=== PATIENT | female | born 1960 | race Caucasian/White ===

== ENCOUNTER 2017-08-10 15:59 | Outpatient (RCR) | payer OTHER ==
[2017-08-04 16:27] VITALS: BP 151/109
[2017-08-04 16:39] VITALS: BP 153/100
[2017-08-04 16:43] LABS: PLATELET COUNT, AUTOMATED 251 K/uL (150-450)
[~2017-08-10 15:59] MED LIST: CHOL100052 PO; CHOL100058 PO; CIPR-214 PO; ESTR42.5 VG; IBUP800T37 PO; MET60GMPT TOP; NITR-1 PO; OXYC-373 PO; TAMO20TA24 PO
[2017-08-10 16:05] VITALS: BP 131/79
--- NOTE | 2017-08-12 03:41 | [facility] ONCOLOGY NOTE ---
DATE OF VISIT: August 10, 2017 CHIEF COMPLAINT/REASON FOR VISIT The patient is a pleasant 56-year-old female with a history of stage IIIA grade 1 breast cancer of the left breast diagnosed in 2009, here for followup and survivorship. HISTORY OF PRESENT ILLNESS Melinda returns. Please see her oncologic history below for more details. Overall she feels well. We discontinued the tamoxifen after over 5 years of antiestrogen therapy in Aug, 2016. She feels better off of this. Her biggest complaint today is chronic bacterial vaginosis, for which she takes different therapies including metronidazole. This is providing some relief. No other new issues today. The patient has had bilateral mastectomies as well as bilateral salpingo-oophorectomy. ONCOLOGIC HISTORY Diagnosed with a left breast mass in 2011 showing a grade I infiltrating breast carcinoma. She has had numerous microcalcifications on mammograms and subsequently had mastectomy after she completed all of her breast cancer therapy. She initially had a lumpectomy with lymph node dissection showing 7 of 18 lymph nodes positive for cancer. Her final stage was stage IIIA, grade I. She had close margins and had reexcision followed by adjuvant chemotherapy with dose-dense Adriamycin and Cytoxan followed by dose-dense paclitaxel. She had a rash with paclitaxel and was switched to Abraxane. In January of 2011, she started endocrine therapy with tamoxifen and continued it through July 2016. Decision to discontinue the tamoxifen likely in July 2016 due to increased risks with vaginal dryness and other issues as well as diminishing benefit over time, particularly after bilateral mastectomies as well as bilateral salpingo-oophorectomy. Discontinued tamoxifen in August of 2016. PAST MEDICAL HISTORY 1. Breast cancer. 2. History of vitamin D deficiency. SOCIAL HISTORY The patient is and has one daughter. 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 Never smoker. No significant alcohol use. REVIEW OF SYSTEMS CONSTITUTIONAL: No fevers, chills or hot flashes. HEENT: No headache or vision changes.s CARDIOVASCULAR: No chest pain, dyspnea on exertion or edema. RESPIRATORY: No shortness of breath, wheeze or cough. GASTROINTESTINAL: No nausea, vomiting, diarrhea or constipation. GENITOURINARY: No dysuria or hematuria. MUSCULOSKELETAL: No weakness or joint pain. GYNECOLOGIC: Positive vaginal dryness taking estrogen creams. She does have some BV symptoms at this time using MetroGel. ENDOCRINE: No heat or cold intolerance. PSYCHIATRIC: No anxiety or depression. SKIN: No concerning rashes or lesions. The remainder of the 14-point review of systems otherwise negative. PHYSICAL EXAMINATION VITAL SIGNS: Blood pressure 131/79, pulse 58, respiratory rate 16, temperature 97.1 Fahrenheit. Oxygen saturation 92% on room air. Weight 62.5 kg. Pain 0 out of 10. Fatigue 0 out of 10. GENERAL: Stable condition, resting comfortably in the chair. HEENT: Normocephalic, atraumatic. LYMPHATIC: No appreciable cervical, supraclavicular, axillary adenopathy. No inguinal adenopathy as well. CARDIOVASCULAR: Regular rate and rhythm. Excellent pulse. Normal S1, S2. No extra sounds or murmurs. LUNGS: Clear to auscultation bilaterally. ABDOMEN: Soft, nontender, no organomegaly. SKIN: No concerning findings. Remainder of physical exam otherwise unremarkable. IMPRESSION AND PLAN The patient is a very pleasant 56-year-old female with the following: Stage IIIA grade 1 breast cancer of the left breast diagnosed in the winter of 2009, still in remission. Her likelihood of relapse from this cancer is very low. She has had bilateral mastectomies and bilateral salpingo-oophorectomy, which greatly reduces her risk of a second breast cancer. No need for further imaging , unless she has symptoms of concern. She is in survivorship, and we will see her annually. We discontinued tamoxifen after five years in August of 2016. I answered all of her questions today. BILLING Return visit level 3. Total time 30 minutes, counseling time 15. MTDD
== END 2017-08-14 16:13 | disposition home or self-care (01) ==
LOC: ONC 15:59
PROVIDERS: ATTEND Internal Medicine
DX: Z85.3 Personal history of malignant neoplasm of breast (principal); Z92.21 Personal history of antineoplastic chemotherapy
CPT/HCPCS: 36415; 82040; 82247; 82310; 82374; 82435; 82565; 82947; 84075; 84132; 84155; 84295; 84450; 84460; 84520; 85025; 86300; 99212

== ENCOUNTER → 2017-10-23 | Outpatient (CLI) | payer OTHER ==
[~2017-10-23] MED LIST changes: +HYDR-2966 PO
[2017-10-23 15:30] LABS: PLATELET COUNT, AUTOMATED 222 K/uL (150-450)
== END ==
LOC: LAB 15:14
PROVIDERS: ATTEND Nurse Practitioner Primary Care
DX: R11.0 Nausea (principal)
CPT/HCPCS: 36415; 82040; 82150; 82247; 82310; 82374; 82435; 82565; 82947; 83690; 84075; 84132; 84155; 84295; 84450; 84460; 84520; 85025

== ENCOUNTER → 2017-10-29 | Outpatient (CLI) | payer OTHER ==
--- NOTE | 2017-10-29 15:15 | RADIOLOGY IMAGING REPORT ---
FACILITY: [facility] PATIENT NAME: Melinda Beltran : 1960 MR: [id number] V: [id number] EXAM DATE: ORDERING PHYSICIAN: CONNER ABRAMS TECHNOLOGIST: Location: [facility] Patient: Melinda Beltran : 1960 Visit/Account:[id number] Date of Sevice: 10/29/2017 BONE SURVEY COMPLETE INDICATION: Right-sided chest pain, history of breast cancer COMPARISON: Chest radiograph July 23, 2007 FINDINGS: CHEST: Frontal view obtained. The cardiac silhouette is normal in size. Left axillary clips and lef t chest wall clips noted. The lungs are clear. No rib fracture or metastatic lesion identified. Cervical spine: Lateral and swimmer's lateral views obtained. Vertebral body heights are normal. No metastatic disease identified. Normal prevertebral soft tissues. Moderate C5-6 disc space degenera tion. Skull: Lateral view obtained. Normal without metastatic lesion. Thoracic spine: Frontal and lateral views obtained. Mild convexity right scoliosis. Vertebral body heights are normal. Normal disc space heights. No metastatic disease identified. Humeri: 8mm ovoid lucency projects over the proximal to mid right humeral diaphysis. 2 mm round luce ncy projects over the proximal left humerus. Pelvis: Normal hip and sacroiliac joints. Ill-defined lucency throughout the left acetabulum measure s up to 5.37 m craniocaudad. Equivocal vague lucency within the left ischial tuberosity measuring 2. 9 cm. Lumbar spine: Frontal and lateral views obtained. Vertebral body heights are normal. No metastatic disease identified. Mild to moderate L4-5 disc space degeneration. Approximate 3 to 4 mm retrolisth esis of L5 on S1. Femurs: Normal. IMPRESSION: 1. Ill-defined lucent lesion within the left acetabulum measuring up to 5.3 cm craniocaudad is nilda rning for a malignant lesion until proven otherwise. CT or MR could be utilized for further characterization of this finding as needed. 2. 8mm right and 2 mm left lucencies project over the humeral diaphyses, findings which may represen t metastatic lesions. The 2 mm left humeral diaphysis lucency may represent a chronic benign finding . The 8mm right humerus diaphysis region finding could conceivably represent a superficial or soft t issue artifact mimicking a bony lesion. Repeat right humerus x-ray could be utilized as needed to evaluate the reproducibility of this findin g. Alternatively a bone scan could be utilized to evaluate for hypermetabolic activity in this area and to exclude hypermetabolic activity within the remainder of the skeleton. Report Dictated By: Lamont Fournier MD at 10/29/2017 3:00 PM Report E-Signed By: Lamont Fournier MD at 10/29/2017 3:11 PM WSN:[email or web address]
== END ==
LOC: RAD 10-26 13:48
PROVIDERS: ATTEND Nurse Practitioner Primary Care
DX: R91.8 Other nonspecific abnormal finding of lung field (principal)
CPT/HCPCS: 77075

== ENCOUNTER → 2017-11-05 | Outpatient (CLI) | payer OTHER ==
[~2017-11-05] MED LIST changes: +IOPAMIDOL 76% 100 ML INFUS BTL 100 ML ONE; +IOPAMIDOL 76% 50 ML INFUS BTL 100 ML ONE
--- NOTE | 2017-11-05 18:25 | RADIOLOGY IMAGING REPORT ---
FACILITY: [facility] PATIENT NAME: Melinda Beltran : 1960 MR: [id number] V: [id number] EXAM DATE: ORDERING PHYSICIAN: CONNER ABRAMS TECHNOLOGIST: Location: [facility] [place] Patient: Melinda Beltran : 1960 Visit/Account:[id number] Date of Sevice: 11/05/2017 CHEST/AB/PELV W/CONTRAST HISTORY: HX of breast cancer, in remission. R rib pain and recen TECHNIQUE: CT chest, abdomen and pelvis with intravenous contrast. One of the following dose optimization techniques was utilized in the performance of this exam: Autom ated exposure control; adjustment of the mA and/or kV according to the patient's size; or use of an i terative reconstruction technique. Specific details can be referenced in the facility's radiology C T exam operational policy. CONTRAST: 75 mL Isovue-370 IV COMPARISON: CT 06/28/2012, bone survey 10/29/2017 FINDINGS: CHEST: Heart/vessels: Negative. Mediastinum: Negative. Lymph nodes: No adenopathy. Lungs/pleura: Asymmetric, left greater than right, but likely benign-appearing biapical pleural pare nchymal pulmonary scarring. Several calcified pulmonary micronodules consistent with benign granuloma s. Bones/soft tissues: Numerous mixed lytic and/or sclerotic osseous lesions throughout the ribs and vi sualized cervicothoracic spine. In regards to patient's reported right rib pain, there is a likely chaidez bacute pathologic fracture of the lateral right 5th rib and a more acute-appearing and presumably als o pathologic fracture of the lateral left 6th rib. Sequela of bilateral mastectomies and left axillar y patricia dissection. ABDOMEN/PELVIS: Hepatobiliary: Low attenuating attenuating but peripheral nodular enhancing 1.4 x 1.7 and 2.0 x 2.1 cm lesions within hepatic segments 5 and 7 respectively. Although better visualized than on remote pr ior exam, these are grossly unchanged and most consistent with benign cavernous hemangiomas. Spleen: Negative. Adrenals: Negative. Pancreas: Negative. Kidneys/: Uterus surgically absent. Ovaries not visualized, either also surgically absent or atrop hic. GI: Negative. Vessels/spaces/nodes: No adenopathy. No free fluid. Bones/soft tissues: Very small fat-containing umbilical hernia. Numerous mixed lytic and/or scleroti c osseous lesions throughout the lumbar spine and pelvis IMPRESSION: 1. Numerous new mixed lytic and/or sclerotic osseous lesions throughout the visualized axial skeleton consistent with metastatic disease. 2. Likely subacute and acute pathologic fractures of the lateral right 5th and left 6th ribs respecti vely. 3. Other chronic and/or benign-appearing changes detailed above including stable right hepatic cavern ous hemangiomas. Report Dictated By: Darrin Mills MD at 11/05/2017 5:57 PM Report E-Signed By: Darrin Mills MD at 11/05/2017 6:21 PM WSN:[id number]
== END ==
LOC: CT 02:07
PROVIDERS: ATTEND Nurse Practitioner Primary Care
DX: C79.51 Secondary malignant neoplasm of bone (principal); D18.03 Hemangioma of intra-abdominal structures
CPT/HCPCS: 71260; 74177; Q9967

== ENCOUNTER → 2017-11-11 | Outpatient (CLI) | payer OTHER ==
[~2017-11-11] MED LIST changes: -IOPAMIDOL 76% 100 ML INFUS BTL 100 ML ONE; -IOPAMIDOL 76% 50 ML INFUS BTL 100 ML ONE
--- NOTE | 2017-11-11 14:17 | RADIOLOGY IMAGING REPORT ---
FACILITY: [facility] [place] PATIENT NAME: Melinda Beltran : 1960 MR: [id number] V: [id number] EXAM DATE: ORDERING PHYSICIAN: JANES MURRY TECHNOLOGIST: [place] [facility] [place] : 1960 Visit/Account:[id number] Date of Sevice: 11/11/2017 WHOLE BODY BONE SCAN HISTORY: Breast CA TECHNIQUE: 27 mCi technetium 99m HDP was injected intravenously. Delayed anterior and posterior body gamma camera images were obtained. Additional gamma camera images: COMPARISON STUDIES: None FINDINGS: Study demonstrates multiple foci of radiotracer uptake within ribs bilaterally with at least 15-20 fo ci of noted within both the anterior and posterior aspects of the ribs bilaterally. There appears to be a generalized increased uptake in the posterior aspect of the thoracic spine with several areas of more discrete uptake most notably at the T2 level. Increased uptake throughout the anterior aspect of the lower cervical upper thoracic spine. Scattered areas of faint increased upta ke on the AP film within the thoracic spine. There is also focus of uptake in the posterior aspect o f the mid cervical region. There is a broad area of uniform uptake throughout the lateral aspect of the left iliac bone. Increa sed uptake is also noted along the posterior medial aspect PA film. Symmetric uptake seen along the SI joints bilaterally right greater than left IMPRESSION: 1. Multiple areas of bony metastatic disease involving primarily the ribs, pelvis cervical thoracic spine. Report Dictated By: Ike Nicolas MD at 11/11/2017 1:48 PM Report E-Signed By: Ike Nicolas MD at 11/11/2017 2:12 PM WSN:[email or web address]
== END ==
LOC: RAD 08:01
PROVIDERS: ATTEND Internal Medicine
DX: C79.51 Secondary malignant neoplasm of bone (principal)
CPT/HCPCS: 78306; A9503

== ENCOUNTER → 2017-12-01 | Outpatient (CLI) | payer OTHER ==
[~2017-12-01] MED LIST changes: +GADOBENATE 529MG/1ML 15ML VIAL IVP ONE
--- NOTE | 2017-12-01 10:26 | RADIOLOGY IMAGING REPORT ---
FACILITY: [facility] PATIENT NAME: Melinda Beltran : 1960 MR: [id number] V: [id number] EXAM DATE: ORDERING PHYSICIAN: LINDA GONZALEZ TECHNOLOGIST: Location: [facility] - [place] Patient: Melinda Beltran : 1960 Visit/Account:[id number] Date of Sevice: 12/01/2017 Examination: MR brain without and with contrast History: Metastatic breast cancer Comparison: None Technique: Multiplane MR imaging was performed through the brain without and with contrast. 12 cc IV multihance was administered. Findings: Diffusion: None Ventricles: Normal Midline shift: None Extraxial fluid: None Midline craniocervical structures: Normal Parenchyma: A few scattered punctate white matter high signal foci, within normal limits for age. Enhancement: No pathologic enhancement Vascular flow voids: Normal Orbits and paranasal sinuses: Normal Impression: Normal for age brain MR without and with contrast. No metastatic disease identified. Report Dictated By: Lamont Fournier MD at 12/01/2017 10:09 AM Report E-Signed By: Lamont Fouriner MD at 12/01/2017 10:21 AM WSN:[id number]
== END ==
LOC: MRI 08:35
PROVIDERS: ATTEND Internal Medicine Medical Oncology
DX: R42 Dizziness and giddiness (principal); C79.81 Secondary malignant neoplasm of breast
CPT/HCPCS: 70553; A9577

== ENCOUNTER 2018-01-06 09:45 | Outpatient (RCR) | payer OTHER ==
--- NOTE | 2017-11-19 09:25 | PT INITIAL EVALUATION ---
MEDICAL DIAGNOSIS: Breast Cancer TREATMENT DIAGNOSIS: Breast Cancer, Axillary Cording DATE OF ONSET: 11/19/17 SUBJECTIVE: Melinda is a 57 year old female presenting to physical therapy following recent discovery of recurrence of metastatic breast cancer with mets to the ribs, thoracic spine and pelvis. Pt reports that secondary to metastasis that she recently had a R rib fracture that occurred 4-5 weeks prior , and has a history of a L rib fracture. Pt has a history of L breast cancer initially diagnosed in 2010 with lumpectomy and axillary lymph node removal. Pt had a bilateral mastectomy in 2012 as well following treatment of both radiation and chemotherapy. Pt is very active and with recent rib fractures is afraid of further injury with activity level. Pt also notices that with decreased activity she has had increased stiffness in her L axilla with significant scar tissue. Pt treatment for metastasis is currently being decided following recent imaging. Pt recreationally hikes, walks and lifts free weights. Pt previously ran but has stopped running since dx of metastasis secondary to fear of fractures and rib pain. Pain is highest at 2/10 lately with transfers and twists, but the pain comes and goes. REHAB PROBLEM LIST: Increased Pain Decreased ROM Decreased Strength Decreased Endurance Decreased Function Decreased ADL's Decreased Mobility PREVIOUS MEDICAL HISTORY: See EMR OBJECTIVE: Pt has B mastectomy without reconstruction. Incisions are well healed. Pt has increased scapular protraction on the L compared to R with overhead reaching. Posture: Forward rounded shoulders B. ROM: UE AROM (L, R): flexion: 115,132, abd: 135, 136, ER: 74, 65, IR: T4, T3 level Strength: Shoulder MMT: all 5/5 excluding R IR at 4+/5 Palpation: Pt has moderate axillary cording along the anterior and posterior L axillary sumner. Mobility: ECOG Performance Status: grade 0 ASSESSMENT: Melinda presents with signs and symptoms consistent with axillary cording secondary to diagnosis and intervention for L breast cancer. Physical therapy is indicated for this patient to address the above listed deficits in functional mobility for improved performance of ADL's and recreational activities with ongoing oncological intervention. Short Term Goals In 1 MO pt will increase L UE ROM to equal to that of the R for improved function with ADL's. In 1 MO pt will maintain ECOG performance status of 1 or less with ongoing oncological intervention to optimize outcomes and maintain function. In 2 MO pt will maintain and improve strength of the b UE to 5/5 in all motions for improved function with ADL's. Patient's Goals Improve mobility and return to recreational activities. PLAN: Patient to be seen for Manual Therapy/STM/MET Strengthening/condition Ice/Heat Range of Motion Spinal Stabilization Stretching Iontophoresis Neuromuscular Re-ed Closed Chain Program Posture/Body mechanics Gait Trg/Balance Trg Home Exercise Program Mech./Manual Traction Therapeutic Activities Pelvic Floor 2x/Week for 4 Months If you have any questions, comments, or concerns about this report or plan, please contact me at . Thank you, Carlie Foster, PT, DPT, CLT MTDD
[~2018-01-06 09:45] MED LIST changes: +CALC500T6 PO; -GADOBENATE 529MG/1ML 15ML VIAL IVP ONE
== END 2018-02-16 ==
LOC: PT 09:45
PROVIDERS: ATTEND Internal Medicine
DX: C50.912 Malignant neoplasm of unspecified site of left female breast (principal); C79.51 Secondary malignant neoplasm of bone; Z90.13 Acquired absence of bilateral breasts and nipples; Z92.21 Personal history of antineoplastic chemotherapy; Z92.3 Personal history of irradiation
CPT/HCPCS: 97161

== ENCOUNTER 2018-01-27 08:29 | Outpatient (RCR) | payer OTHER ==
[2017-11-10 13:32] LABS: PLATELET COUNT, AUTOMATED 298 K/uL (150-450)
[2017-11-10 13:41] VITALS: BP 113/73
[2017-11-16 08:36] VITALS: BP 132/77
--- NOTE | 2017-11-17 20:31 | ONCOLOGY FOLLOW UP NOTE ---
EVENT DATE: November 16, 2017 CHIEF COMPLAINT/REASON FOR VISIT Mrs. Beltran is a pleasant, 57-year-old female with a history of grade 1 breast cancer of the left breast, diagnosed in 2009, originally stage IIIA, but now stage IV, here for followup. HISTORY OF PRESENT ILLNESS Melinda returns. Please see her oncology history below for more details. I had an extensive conversation with her on the phone approximately a week and a half ago after discovery of metastatic disease to the bone in followup for mild rib pain. Her rib pain has actually improved, but we have a bone scan and studies which, unfortunately, do show scattered, wide-spread disease. Of note, she had grade I disease and stopped tamoxifen about 14 months ago. No symptoms until late this spring/early summer approximately a year after stopping the therapy. ONCOLOGIC HISTORY Diagnosed with a left breast mass in 2011 showing a grade 1 infiltrating breast carcinoma. She has had numerous microcalcifications on mammograms and subsequently had mastectomy after she completed all of her breast cancer therapy. She initially had a lumpectomy with lymph node dissection showing 7 of 18 lymph nodes positive for cancer. Her final stage was stage IIIA, grade 1. She had close margins and had reexcision, followed by adjuvant chemotherapy with dose-dense Adriamycin and Cytoxan, followed by dose-dense PACLITAXEL. She had a rash with PACLITAXEL and was switched to Abraxane. In January 2011, she started endocrine therapy with tamoxifen and continued it through July 2016. Decision to discontinue the tamoxifen likely in July 2016 due to increased risks with vaginal dryness and other issues as well as diminishing benefit over time, particularly after bilateral mastectomies as well as bilateral salpingo- oophorectomy. Discontinued tamoxifen in August of 2016. PAST MEDICAL HISTORY 1. Breast cancer. 2. History of vitamin D deficiency. SOCIAL HISTORY The patient is and has one daughter. 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 No significant alcohol use. REVIEW OF SYSTEMS CONSTITUTIONAL: No fevers, chills, hot flashes. HEENT: No headache or vision changes. CARDIOVASCULAR: No chest pain, dyspnea on exertion, or edema. RESPIRATORY: No shortness of breath, wheeze, cough. GASTROINTESTINAL: No nausea or vomiting, although her stomach occasionally feels a bit upset which may be related to stress or to the cancer. GENITOURINARY: No dysuria or hematuria. MUSCULOSKELETAL: Positive rib pain, rated 1/10, improved since a month ago. GYNECOLOGIC: She does have a history of vaginal dryness and had used estrogen creams. Recommend stopping this. ENDOCRINE: No heat or cold intolerance. PSYCHIATRIC: No anxiety or depression. SKIN: No concerning rashes or lesions. The remainder of the 14-point review of systems otherwise negative. PHYSICAL EXAMINATION VITAL SIGNS: Blood pressure 132/77, pulse 62, respiratory rate 16, temperature 97.2 Fahrenheit. Oxygen saturation 97% on room air. Weight 59.8 kg. Pain 1/ 10. Fatigue zero/10. GENERAL: Stable condition, resting comfortably in the chair. HEENT: Normocephalic, atraumatic. CARDIOVASCULAR: Regular rate and rhythm. Normal S1, S2. LUNGS: Clear to auscultation bilaterally. ABDOMEN: Soft, nontender. No masses or organomegaly. SKIN: No concerning findings. Remainder of physical exam unremarkable. IMPRESSION AND PLAN Mrs. Beltran is a very pleasant, 57-year-old female with the followin. Stage IV, grade 1, estrogen receptor-positive, HER2 normal breast cancer of the left breast, diagnosed in the winter of 2009. She has had a history of bilateral salpingo-oophorectomy, but I would recommend consideration of an aromatase inhibitor as she was treated with tamoxifen for approximately six to seven years. We discontinued it in August 2016 due to side effects and patient preference. There are clinical trials to consider as well. She is not in a visceral crisis, and I do not recommend chemotherapy at this time. We discussed seeing our breast cancer specialists in [facility], and she would like to do this and then move forward with treatment in a team approach. I answered all of her many questions today as well as the questions of her today. 2. Pain due to cancer. 3. Concern for fracture. Plan to add Xgeva after we determine her appropriate treatment plan and will order physical therapy as well today. BILLING Return visit level 5. Total time 60 minutes, counseling time 45. MTDD
[2017-12-22 12:05] VITALS: BP 128/71
[2017-12-22 13:52] VITALS: BP 128/66
[2018-01-01 08:32] VITALS: BP 121/74
--- NOTE | 2018-01-05 15:29 | Pharmacy Note ---
Pharmacy Note Note: Clinical Pharmacist Note: Chemotherapy Education Visit Date: 01/05/18 Chemotherapy Regimen: Carboplatin AUC=6 Q21D x 6 cycles The regimen includes carboplatin AUC=6 Q21D x 6 cycles. The schedule of treatment administration was explained in detail to the patient in regards to lab visits, timing and sequence of premedications and chemotherapy, followed by any supportive medications to be given. Discussed the purpose of the port and why we administer chemotherapy through a port. Port placed prior to chemo ed appointment. Patient's diagnosis, treatment plan, and intent of treatment along with goals are outlined on the signed consent form, that was reviewed and signed at the end of this appointment. The goal is control of disease. The potential for drug/drug interaction and drug/food interactions were explained to the patient. A medication reconciliation was reviewed by the pharmacist today. We reviewed and discussed toxicities of supportive care medications and how to appropriately use supportive medications including the schedule of anti-emetics. These medications include the following: Take home medications: dexamethasone, ondansetron, prochlorperazine, lorazepam Pre-medications: fosaprepitant, palonosetron, dexamethasone Supportive Medications: none at this time, discussed potential need for pegfilgrastim We have also discussed the potential for long and short term side effects of chemotherapy including, but not limited to the side effects outlined below: -Low WBCs or neutropenia: Patient may experience bone marrow toxicity that would increase their risk for infection. Patient is aware to look for signs and symptoms of infection (e.g. fever of higher than 100.4F, chills, sore throat, etc.) and knows what number to call and when to contact the clinic. Advised patient of things they can do such as wash hands with soap and water often, avoid people who are sick, and avoid crowds during times of low blood counts (typically 7-10 days post chemotherapy). - Low RBCs or anemia: Anemia is when you don't have enough red blood cells to carry oxygen through your body, which causes fatigue, weakness, lightheadedness, pale skin, SOB, or headaches. Discussed the importance of getting enough restful sleep at night and eating a diet rich in iron. Lab values will be closely monitored to check your RBCs. Advised patient to contact the clinic if they have a fast heart rate, dizziness, or lightheadedness. -Low platelet counts or thrombocytopenia: Patient may experience low platelets which can lead to increased risk of bleeding, easy bruising, black or bloody stools, or small red or purple spots on the skin. Platelets help blood to clot and if your platelets are low enough, bleeding may not stop after a few minutes. Excessive bleeding or bruising, red spots on your skin or new onset headaches require a phone call to the clinic. - Fatigue (feeling tired): Some patients may experience fatigue, or feel tired, weak, low energy, drained or exhausted. You will experience fatigue after chemotherapy, but the amounts for each person and chemotherapy will differ. Advised patient to stay active as much as they can with light exercise, take short naps if needed, get a restful night of sleep, and eat a well-balanced diet. Call the clinic if you are unable to get out of bed or do typical daily activities, have shortness of breath, or have trouble walking small distances. -Nausea or vomiting: Most patients may experience some level of nausea (feeling queasy or sick to your stomach) or vomiting. Advised patient to take their a nti-nausea medications as prescribed, drink plenty of fluids, eat several small meals throughout the day, eat bland easy to digest foods, and speak to our pencil sorter if they have questions. Call the clinic if the nausea or vomiting is not eased by your medications and lasts 12 hours or longer, or if unable to eat or drink, or keep medicines down. - Appetite changes (eating less or more): You may experience a decrease or increase in your appetite that might last a day, weeks or months. Advised patient to set a schedule for eating and drink high protein drinks to maintain calories. Ask your doctor or nurse for a pencil sorter consult to help manage your appetite changes or if you have concerns about your appetite changes. Contact the clinic if you notice a change in weight and if you are unable to take in more than a few bites of food or sips of liquid at mealtimes. Favorite foods may also taste different or may not be pleasing. -Mouth sores and oral care (mucositis or stomatitis): Patient was informed that they may experience taste changes, dry mouth, and potential mouth sores due to the chemotherapy. The best way to prevent and treat mouth sores is to do routine mouth care each day. If mouth sores occur, use mouth rinses with baking soada, alst and warm water after meals and before bed (dissolve 2 TBSP of baking soda and 1/2 tsp of salt in 8 oz of warm water--swish and spit). Avoid mouthwashes with alcohol and spicy food if mouth sores exist. If dry mouth occurs, sucking on ice chips or sugar free hard candy can help. -Neuropathy (numbness-pins and needles-tingling): Patient may experience acute and chronic neuropathy that can potentially be irreversible due to the chemotherapy. The patient is advised to report symptoms to the clinic if they experience burning, tingling, and numbness in the hands, feet, face or mouth. -Sexual and Reproductive Health: There is an increased risk of chemotherapy exposure to your partner when you are on chemo. When sexually active, wear a protective barrier while on chemotherapy. -Hepatotoxicity: There is a risk of toxicity to your liver. Your lab work will be watched closely to determine if this is occurring and any required dose adjustments will be made at that time. -Extravasation: The patient is receiving a vesicant as part of their chemotherapy regimen. While the risk of extravasation with a port is very low, there is still a risk. Discussed what a vesicant is and that extravasation of a vesicant can lead to severe local tissue injury and necrosis requiring surgical intervention and possible skin grafting. Patient was educated to report any pain or burning at the port site GIANNA. -Other Toxicities: Electrolyte changes, nephrotoxicity, vision changes and ototoxicity: Patient will be monitored closely for toxicities listed. Lab work will be reviewed weekly and the patient will be notified with these changes and if there are changes, may need additional follow up and testing. Patient was given the Standard Chemotherapy Education Binder with appropriate phone numbers and we reviewed symptoms that would prompt a call to the clinic. Upcoming appointments were discussed and patient knows to follow up at the front office attendant to get print outs of their schedule and the processes to change/cancel an appointment. Consent was reviewed with the patient and signed in my presence. The treating physician will review and sign the consent. Allergies were reviewed: Sulfa, meperidine, paclitaxel, sulfamethoxazole, trimethoprim At the end of this discussion, the patient verbalized understanding of the provided education and information and all of their questions were answered to their satisfaction. Patient knows how to reach me if further questions or concerns come up. Time spent with the patient: 75 minutes, with all 75 minutes being spent counseling on the detailed information above. Jaymie Corbett, PharmD, BCOP JAYMIE CORBETT Jan 05, 2018 15:29
[2018-01-06 08:35] VITALS: BP 121/78
[2018-01-06] MEDS: LIDOCAINE/SOD BICARB 8.4% SYR ID PRN (08:55)
[2018-01-06] MEDS: HEPARIN FLSH (PORT) 500 UN/5ML IVP PRN (08:55)
[2018-01-06] MEDS: NS(*) 0.9% 500 ML BAG 500 ML IV PRN (08:55)
[2018-01-06] MEDS: PALONOSETRON 0.25 MG/5 ML VIAL IVP PRN (09:43)
[2018-01-06] MEDS: DEXAMETHASONE SOD PHOS 10MG/ML IVP PRN (09:44)
[2018-01-06] MEDS: FOSAPREPITANT DIM 150 MG/5 ML 150 MG in NS(*) 0.9% 250 ML BAG 245 ML IVPB PRN (10:17)
[2018-01-06 12:25] VITALS: BP 122/67
[2018-01-13 08:32] VITALS: BP 115/74
[2018-01-13 08:45] LABS: PLATELET COUNT, AUTOMATED 265 K/uL (150-450)
[~2018-01-27] VITALS: Ht 175.3 cm; Wt 58.0 kg
[~2018-01-27 08:29] MED LIST changes: +ALTEPLASE RECOMB 2 MG VIAL IVP PRN; +CARBOPLATIN IVPB ONE; +DEXTROSE 5%(*) 100 ML BAG 100 ML IVPB PRN; +LIDOCAINE/SOD BICARB 8.4% SYR ID PRN; +NS 0.9% IVPB ONE; +NS(*) 0.9% 100 ML BAG 100 ML IVPB PRN; +WATER FOR INJ,STERILE 20 ML IVP PRN; +ZOLEDRONIC ACID 4 MG/5 ML VIAL 4 MG in NS(*) 0.9% 100 ML BAG 100 ML IVPB ONE
[2018-01-27] MEDS: HEPARIN FLSH (PORT) 500 UN/5ML IVP PRN (08:55)
[2018-01-27] MEDS: LIDOCAINE/SOD BICARB 8.4% SYR ID PRN (08:55)
[2018-01-27] MEDS: NS(*) 0.9% 500 ML BAG 500 ML IV PRN (08:55)
[2018-01-27 08:58] VITALS: BP 130/88
[2018-01-27] MEDS: DEXAMETHASONE SOD PHOS 10MG/ML IVP PRN (09:07)
[2018-01-27] MEDS: PALONOSETRON 0.25 MG/5 ML VIAL IVP PRN (09:08)
[2018-01-27] MEDS: FOSAPREPITANT DIM 150 MG/5 ML 150 MG in NS(*) 0.9% 250 ML BAG 245 ML IVPB PRN (09:08)
[2018-01-27] MEDS ORDERED: NS 0.9% IVPB ONE (09:30)
[2018-01-27] MEDS ORDERED: CARBOPLATIN IVPB ONE (09:30)
[2018-01-27 11:27] VITALS: BP 106/67
== END 2018-02-07 ==
LOC: ONC 08:29
PROVIDERS: ATTEND Internal Medicine
DX: Z51.11 Encounter for antineoplastic chemotherapy (principal); C50.912 Malignant neoplasm of unspecified site of left female breast; Z17.0 Estrogen receptor positive status [ER+]
CPT/HCPCS: 36415; 82378; 83735; 85025; 85027; 86300; 96365; 96367; 96375; 96413; 99212; J1100; J1453; J1642; J2469; J3489; J7040; J7050; J9045; 82040; 82247; 82310; 82374; 82435; 82565; 82947; 84075; 84132; 84155; 84295; 84450; 84460; 84520

== ENCOUNTER → 2018-03-25 | Outpatient (CLI) | payer OTHER ==
[~2018-03-25] MED LIST changes: -ALTEPLASE RECOMB 2 MG VIAL IVP PRN; -CARBOPLATIN IVPB ONE; -DEXTROSE 5%(*) 100 ML BAG 100 ML IVPB PRN; +IOPAMIDOL 76% 75 ML INFUS BTL 75 ML ONE; -LIDOCAINE/SOD BICARB 8.4% SYR ID PRN; -NS 0.9% IVPB ONE; -NS(*) 0.9% 100 ML BAG 100 ML IVPB PRN; -WATER FOR INJ,STERILE 20 ML IVP PRN; -ZOLEDRONIC ACID 4 MG/5 ML VIAL 4 MG in NS(*) 0.9% 100 ML BAG 100 ML IVPB ONE
--- NOTE | 2018-03-25 15:55 | RADIOLOGY IMAGING REPORT ---
FACILITY: [facility] - [place] PATIENT NAME: Melinda Beltran : 1960 MR: [id number] V: [id number] EXAM DATE: ORDERING PHYSICIAN: EMEKA ARELLANO TECHNOLOGIST: Location: [facility] - [place] Patient: Melinda Beltran : 1960 Visit/Account:[id number] Date of Sevice: 03/25/2018 ADDENDUM #1 The stable nodules in segments five and seven of the liver demonstrated peripheral enhancement on the portal venous phase however on the delayed images the enhancement pattern follows blood pool and are consistent with benign hemangiomas. Report Dictated By: Elise Mckenzie MD at 03/25/2018 4:18 PM Report E-Signed By: Elise Mckenzie MD at 03/25/2018 4:19 PM ORIGINAL REPORT CHEST/AB/PELV W/CONTRAST HISTORY: ADDITIONAL HISTORY: Metastatic breast cancer TECHNIQUE: Following administration of IV contrast axial images acquired through the chest abdomen a nd pelvis during the portal venous phase. Coronal and sagittal reformatting was also performed.Dose Lowering Technique One of the following dose optimization techniques was utilized in the performance of this exam: Autom ated exposure control; adjustment of the mA and/or kV according to the patient's size; or use of an i terative reconstruction technique. Specific details can be referenced in the facility's radiology C T exam operational policy. CONTRAST: 75 mL Isovue-370 COMPARISON: November 05, 2017 FINDINGS: CHEST: Lungs/Pleura: Asymmetric fibrotic changes and pleural thickening in the pulmonary apices, left great er than right appears similar to the prior study several calcified pulmonary nodules remain unchanged consistent with benign granulomas Mediastinum/lymph nodes: Negative. Heart/vessels: There is an implanted right-sided port the distal tip in superior vena cava Bones/soft tissues: There postsurgical changes from bilateral mastectomies and bilateral axillary ly mph node dissection Lytic and sclerotic metastases throughout the visualized bones including cervical and thoracic spine again noted slightly more prominent compared to the prior study ABDOMEN AND PELVIS: Hepatobiliary: A hypoattenuating peripherally enhancing masses in segment five and seven of the live r appear unchanged Spleen: Negative. Pancreas: Negative. Adrenals: Negative. Kidneys ureters and bladder : Negative. Genitalia: Hysterectomy GI: Negative. Vessels/spaces/nodes: Negative. Bones/soft tissues: Small umbilical hernia containing fat Numerous mixed lytic and sclerotic lesions throughout the lumbar spine and pelvis are slightly more a dvanced Additional findings: None pertinent. IMPRESSION: The mixed lytic and sclerotic metastases throughout the visualized bones are slightly more advanced w hen compared the prior study The hypoattenuating, peripherally enhancing masses in segment five and seven of the liver appears sta ble Other chronic findings as described Report Dictated By: Elise Mckenzie MD at 03/25/2018 3:34 PM Report E-Signed By: Elise Mckenzie MD at 03/25/2018 3:51 PM MATTN:AMICIVN
== END ==
LOC: CT 03-24 00:16
PROVIDERS: ATTEND Nurse Practitioner Family
DX: C50.919 Malignant neoplasm of unspecified site of unspecified female breast (principal); C79.51 Secondary malignant neoplasm of bone
CPT/HCPCS: 71260; 74177; Q9967

== ENCOUNTER → 2018-04-05 | Outpatient (CLI) | payer OTHER ==
[~2018-04-05] MED LIST changes: -IOPAMIDOL 76% 75 ML INFUS BTL 75 ML ONE
--- NOTE | 2018-04-05 15:38 | RADIOLOGY IMAGING REPORT ---
FACILITY: [facility] - [place] PATIENT NAME: Melinda Beltran : 1960 MR: [id number] V: [id number] EXAM DATE: ORDERING PHYSICIAN: KIRK HOOKER TECHNOLOGIST: Location: [facility] - [place] Patient: Melinda Beltran : 1960 Visit/Account:[id number] Date of Sevice: 04/05/2018 WHOLE BODY BONE SCAN HISTORY: Metastatic breast cancer TECHNIQUE: 24.8 mCi technetium 99m HDP was injected intravenously. Delayed anterior and posterior wh ole body gamma camera images were obtained. Additional gamma camera images: Right and left lateral skull COMPARISON: November 11, 2017 FINDINGS: Bone radiotracer activity: Numerous focal areas of isotope uptake are seen throughout the cervical t horacic and lumbar spine the ribs the shoulders and the pelvis. These finds are consistent with know n osseous metastases. The degree of uptake in the thoracic and lumbar spine appears slightly more ad vanced Extraosseous radiotracer activity: Unremarkable. Renal and urinary collecting system activity: Unremarkable. IMPRESSION: Extensive osseous metastases as described above. The degree of metastases appears to advanced in the thoracic and lumbar spine when compared to the prior study Report Dictated By: Elise Mckenzie MD at 04/05/2018 3:25 PM Report E-Signed By: Elise Mckenzie MD at 04/05/2018 3:34 PM WSN:[email or web address]
== END ==
LOC: NUC 04:29
PROVIDERS: ATTEND Specialist
DX: C50.519 Malignant neoplasm of lower-outer quadrant of unspecified female breast (principal); C79.51 Secondary malignant neoplasm of bone
CPT/HCPCS: 78306; A9503

== ENCOUNTER 2018-04-30 08:30 | Outpatient (RCR) | payer OTHER ==
[2018-02-17 08:46] VITALS: BP 117/77
[2018-02-17] MEDS: DEXAMETHASONE SOD PHOS 10MG/ML IVP PRN (08:58)
[2018-02-17] MEDS: PALONOSETRON 0.25 MG/5 ML VIAL IVP PRN (08:58)
[2018-02-17] MEDS: FOSAPREPITANT DIM 150 MG/5 ML 150 MG in NS(*) 0.9% 250 ML BAG 245 ML IVPB PRN (09:14)
[2018-02-17] MEDS: HEPARIN FLSH (PORT) 500 UN/5ML IVP PRN (09:15)
[2018-02-17] MEDS: LIDOCAINE/SOD BICARB 8.4% SYR ID PRN (09:15)
[2018-02-17 11:12] VITALS: BP 109/66
[2018-03-10 08:37] VITALS: BP 116/78
[2018-03-10] MEDS: NS(*) 0.9% 500 ML BAG 500 ML IV PRN (08:51)
[2018-03-10] MEDS: LIDOCAINE/SOD BICARB 8.4% SYR ID PRN (08:51)
[2018-03-10] MEDS: DEXAMETHASONE SOD PHOS 10MG/ML IVP PRN (08:53)
[2018-03-10] MEDS: PALONOSETRON 0.25 MG/5 ML VIAL IVP PRN (08:59)
[2018-03-10] MEDS: FOSAPREPITANT DIM 150 MG/5 ML 150 MG in NS(*) 0.9% 250 ML BAG 245 ML IVPB PRN (09:45)
[2018-03-10] MEDS: HEPARIN FLSH (PORT) 500 UN/5ML IVP PRN (11:33)
[2018-03-10 11:43] VITALS: BP 127/78
[2018-03-31 08:37] VITALS: BP 165/89
[2018-03-31] MEDS: NS(*) 0.9% 500 ML BAG 500 ML IV PRN (09:00)
[2018-03-31] MEDS: PALONOSETRON 0.25 MG/5 ML VIAL IVP PRN (09:14)
[2018-03-31] MEDS: DEXAMETHASONE SOD PHOS 10MG/ML IVP PRN (09:14)
[2018-03-31 09:15] VITALS: BP 132/79
[2018-03-31] MEDS: FOSAPREPITANT DIM 150 MG/5 ML 150 MG in NS(*) 0.9% 250 ML BAG 245 ML IVPB PRN (09:35)
[2018-03-31 13:07] VITALS: BP 132/83
--- NOTE | 2018-04-01 16:47 | ONCOLOGY FOLLOW UP NOTE ---
EVENT DATE: March 31, 2018 CHIEF COMPLAINT Followup for metastatic breast cancer. HISTORY OF PRESENT ILLNESS Patient is a 57-year-old female who is seen today for consideration of cycle #5 of carboplatin. She has been receiving this under the guidance of Dr. Sandoval. She is tolerating her treatment well, although does have the expected fatigue for two to three days after treatment. Constipation is managed with MiraLAX. She now has minimal rib pain, although notes some discomfort on the right after dancing and holding a [address]-month-old baby. Dr[address] Sandoval felt her most recent scan on 03/25/18 was negative. Liver notes hemangiomas. Bones were difficult to assess, but are described as lytic and sclerotic throughout, felt to be healing. She remains very active. 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 She walks daily and also lifts weights and does stretching. She otherwise denies any new complaints. ONCOLOGY HISTORY Diagnosed with a left breast mass in 2009. Underwent left lumpectomy showing grade 1 infiltrating breast cancer, ER/TN positive. Completed adjuvant chemotherapy with dose-dense Adriamycin and Cytoxan, followed by dose-dense PACLITAXEL. Due to rash with PACLITAXEL, she was switched to Abraxane. She completed adjuvant radiation in December 2010. She began tamoxifen in January 2011 and continued this through July 2016. Underwent bilateral mastectomy in 2012 as well as VASYL-BSO due to uterine fibroids in 2015. Unfortunately, developed bone pain in October 2017. Bone biopsy showed metastatic breast cancer, triple negative. Began carboplatin in December 2017. PAST MEDICAL HISTORY 1. Left breast cancer. 2. Vitamin D deficiency. 3. Hypertension. 4. Pericardial effusion/pericarditis, 2011. SURGICAL HISTORY 1. Left lumpectomy, May 2010. 2. Bilateral mastectomy without reconstruction, June 2012. 3. VASYL-BSO in 2015 secondary to uterine fibroids. FAMILY HISTORY Negative for malignancy. SOCIAL HISTORY Patient is . They have one grown daughter. 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 She has never smoked. She has no significant alcohol use. REVIEW OF SYSTEMS A 12-point review of systems is performed and is negative except as stated above. She does have some mild right rib discomfort. PHYSICAL EXAMINATION VITAL SIGNS: Weight 61.3 kg. BP 132/83, P 70, R 16, temp 97.8, O2 sat 93%. GENERAL: Patient is a well-developed, well-nourished female in no acute distress. HEAD: Normocephalic, atraumatic. EYES: Sclerae anicteric. MOUTH: Moist mucous membranes. No lesions. NECK: Supple. No palpable adenopathy. LUNGS: Clear bilaterally. CARDIOVASCULAR: Heart rate regular, 70 per minute, without murmur, S3, or S4. EXTREMITIES: No edema. NEUROLOGIC: Nonfocal. LABORATORIES CBC on 03/29/18 showed a WBC of 3.4, hemoglobin 11.7, hematocrit 34.3, platelets 108,000. CMP reported as within normal limits (labs done at Dr. Sandoval's office). IMPRESSION AND PLAN The patient is a 57-year-old female who developed a grade 1, ER/TN-positive, HER2-negative left breast cancer in 2009. She underwent left lumpectomy. Completed adjuvant therapy with Adriamycin and Cytoxan (AC), followed by Taxol/Abraxane. Completed adjuvant radiation in December 2010. Treated with tamoxifen from January 2011 through July 2016. Developed right rib pain. Bone biopsy was positive for triple-negative metastatic breast cancer. Began carboplatin under the direction of Dr. Sandoval in December 2017. 1. Stage IV breast cancer. Patient will receive cycle #5 of carboplatin today. She is tolerating this well, although does have the expected fatigue for two to three days after treatment. 2. Bone metastases. Continue Zometa every 84 days. She last received this on 03/09/18. 3. Response. CT of the chest, abdomen, and pelvis on 03/25/18 showed no evidence of recurrence. Dr. Sandoval felt this was very stable. The nodules in the liver were benign hemangiomas. Bone disease was difficult to assess as there were mixed lytic and sclerotic lesions, but felt to be healing. 4. Rib discomfort, mild. She discussed this with Dr. Sandoval. It is felt that it is likely from dancing while holding a 6-month-old baby. She will monitor this and notify us if this worsens. 5. Follow up with Dr. Sandoval on 04/29/18. She will receive cycle #6 of treatment at our clinic on 04/30/18. cc: Theresa Sandoval MD [facility]
[~2018-04-30] VITALS: Ht 175.3 cm; Wt 60.3 kg
[~2018-04-30 08:30] MED LIST changes: +ALTEPLASE RECOMB 2 MG VIAL IVP PRN; +CARBOPLATIN IVPB ONE; +DEXTROSE 5%(*) 100 ML BAG 100 ML IVPB PRN; +NS 0.9% IVPB ONE; +NS(*) 0.9% 100 ML BAG 100 ML IVPB PRN; +WATER FOR INJ,STERILE 20 ML IVP PRN; +ZOLEDRONIC ACID 4 MG/5 ML VIAL 4 MG in NS(*) 0.9% 100 ML BAG 100 ML IVPB ONE
[2018-04-30 08:36] VITALS: BP 130/81
[2018-04-30] MEDS: PALONOSETRON 0.25 MG/5 ML VIAL IVP PRN (08:51)
[2018-04-30] MEDS: NS(*) 0.9% 500 ML BAG 500 ML IV PRN (08:52)
[2018-04-30] MEDS: DEXAMETHASONE SOD PHOS 10MG/ML IVP PRN (08:52)
[2018-04-30] MEDS: HEPARIN FLSH (PORT) 500 UN/5ML IVP PRN (08:54)
[2018-04-30] MEDS ORDERED: CARBOPLATIN IVPB ONE ×2 (09:00→11:00)
[2018-04-30] MEDS ORDERED: NS 0.9% IVPB ONE ×2 (09:00→11:00)
[2018-04-30] MEDS: FOSAPREPITANT DIM 150 MG/5 ML 150 MG in NS(*) 0.9% 250 ML BAG 245 ML IVPB PRN (09:14)
--- NOTE | 2018-04-30 11:45 | NUR ---
Pt completed initial HADS screen. Pt scored D:1, A:7 (moderate)
== END 2018-05-18 ==
LOC: ONC 08:30
PROVIDERS: ATTEND Internal Medicine
DX: Z51.11 Encounter for antineoplastic chemotherapy (principal); C50.919 Malignant neoplasm of unspecified site of unspecified female breast; C79.51 Secondary malignant neoplasm of bone; Z90.13 Acquired absence of bilateral breasts and nipples; I10 Essential (primary) hypertension
CPT/HCPCS: 96366; 96367; 96375; 96413; J1100; J1453; J1642; J2469; J3489; J7040; J7050; J9045

== ENCOUNTER → 2018-07-02 | Outpatient (CLI) | payer OTHER ==
[~2018-07-02] MED LIST changes: -ALTEPLASE RECOMB 2 MG VIAL IVP PRN; -CARBOPLATIN IVPB ONE; -DEXTROSE 5%(*) 100 ML BAG 100 ML IVPB PRN; +IOPAMIDOL 76% 100 ML INFUS BTL 100 ML ONE; -NS 0.9% IVPB ONE; -NS(*) 0.9% 100 ML BAG 100 ML IVPB PRN; -WATER FOR INJ,STERILE 20 ML IVP PRN; -ZOLEDRONIC ACID 4 MG/5 ML VIAL 4 MG in NS(*) 0.9% 100 ML BAG 100 ML IVPB ONE
--- NOTE | 2018-07-02 08:49 | RADIOLOGY IMAGING REPORT ---
FACILITY: [facility] - [place] PATIENT NAME: Melinda Beltran : 1960 MR: [id number] V: [id number] EXAM DATE: ORDERING PHYSICIAN: KIRK HOOKER TECHNOLOGIST: Location: [facility] Patient: Melinda Beltran : 1960 Visit/Account:[id number] Date of Sevice: 07/02/2018 ADDENDUM #1 ADDENDUM: After the CT scan, the patient underwent a nuclear bone scan which demonstrated worsening metastatic disease in the ribs. Please see separately dictated report. Report Dictated By: Chevy Denny MD at 07/02/2018 2:21 PM Report E-Signed By: Chevy Denny MD at 07/02/2018 2:[address] scan of the chest, abdomen, and pelvis with contrast. HISTORY: Metastatic breast cancer. COMPARISON: 03/25/2018. 1 mm thick cannot [address] images were obtained of the chest, abdomen, and pelvis using 75 mL intravenous Isovue-370. No oral contrast. Sagittal and coronal computer reconstructions were pe rformed. One of the following dose optimization techniques was utilized in the performance of this e xam: Automated exposure control; adjustment of the mA and/or kV according to the patient's size; or u se of an iterative reconstruction technique. Specific details can be referenced in the facility's r adiology CT exam operational policy. FINDINGS: Mild pleural parenchymal scarring is present along the lung apices, essentially unchanged. Mild stre aky densities are scattered in the periphery of both lungs, unchanged. No pleural fluid. The ascend ing aorta is mildly ectatic, unchanged. A right chest port catheter tip terminates at the superior c avoatrial junction. No bulky mediastinal or hilar adenopathy. The heart size is upper limits of nor mal. The trachea and central bronchi are unremarkable. The liver and spleen are normal in size. A peripherally enhancing lesion measuring 1.9 cm in diamete r is present in the lateral aspect of the right liver lobe, unchanged. A 1.8 cm peripherally enhanci ng lesion is present in the anterior segment of the right liver lobe, unchanged. The gallbladder and bile ducts are unremarkable. The pancreas is normal in size. The portal vein is patent. The kidne ys and adrenal glands are normal in size. No hydronephrosis. The abdominal aorta is minimally calci fied. No bulky abdominal or pelvic adenopathy. The uterus is absent. The ovaries are not well visualized. Unopacified bowel loops are scattered in the abdomen and pelvis. The appendix is normal in size. The urinary bladder is incompletely opacif ied. Multiple sclerotic and lytic lesions are scattered throughout the skeleton, most prominent in the spi ne and bony pelvis, essentially unchanged. IMPRESSION: Extensive skeletal metastatic disease, unchanged. Absent uterus. Mild bilateral lung pleural parenchymal scarring, unchanged. Two liver lesions consistent with benign hemangiomas, unchanged. Otherwise negative for evidence of metastatic disease. Report Dictated By: Chevy Denny MD at 07/02/2018 8:25 AM Report E-Signed By: Chevy Denny MD at 07/02/2018 8:43 AM WSN:[email or web address]
--- NOTE | 2018-07-02 14:26 | RADIOLOGY IMAGING REPORT ---
FACILITY: [facility] PATIENT NAME: Melinda Beltran : 1960 MR: [id number] V: [id number] EXAM DATE: ORDERING PHYSICIAN: KIRK HOOKER TECHNOLOGIST: Location: [facility] - [place] Patient: Melinda Beltran : 1960 Visit/Account:[id number] Date of Sevice: 07/02/2018 Nuclear bone scan. HISTORY: HISTORY: Breast cancer. COMPARISON: 04/05/2018. 22.4 mCi technetium 99 MDP was injected intravenously. Delayed images were obtained of the skeleton. FINDINGS: Normal activity is present in the kidneys and bladder. Multiple areas of increased uptake are presen t in the cervical spine, thoracic spine, pelvis, and lumbar spine, essentially unchanged. A focal ar ea of increased uptake is present posteriorly in the right eighth rib, new compared to previous. Are as of increased uptake are present in the anterior aspects of several right upper ribs, new or increa sed compared to previous. Multiple other areas of increased uptake are scattered in the ribs bilater ally, essentially unchanged. Areas of increased uptake are present in the right shoulder probably re presenting degenerative changes. IMPRESSION: Bilateral rib metastatic disease, increased compared to previous. Metastatic disease in the spine and pelvis, essentially unchanged. Report Dictated By: Chevy Denny MD at 07/02/2018 2:13 PM Report E-Signed By: Chevy Denny MD at 07/02/2018 2:20 PM WSN:[email or web address]
== END ==
LOC: CT 06-25 04:10
PROVIDERS: ATTEND Specialist
DX: C50.919 Malignant neoplasm of unspecified site of unspecified female breast (principal); C79.51 Secondary malignant neoplasm of bone
CPT/HCPCS: 71260; 74177; 78306; A9503; Q9967

== ENCOUNTER → 2018-07-21 | Outpatient (CLI) | payer OTHER ==
[~2018-07-21] MED LIST changes: -IOPAMIDOL 76% 100 ML INFUS BTL 100 ML ONE
--- NOTE | 2018-07-21 15:45 | RADIOLOGY IMAGING REPORT ---
FACILITY: [facility] PATIENT NAME: Melinda Beltran : 1960 MR: [id number] V: [id number] EXAM DATE: ORDERING PHYSICIAN: KIRK HOOKER TECHNOLOGIST: Location: [facility] [place] Patient: Melinda Beltran : 1960 Visit/Account:[id number] Date of Sevice: 07/21/2018 ADDENDUM #1 ADDENDUM: No intracranial metastatic disease is identified as described. There is new hypointense T1 signal within the C2 and C3 vertebral bodies which is concerning for meta static disease until proven otherwise. Report Dictated By: Lamont Fournier MD at 07/21/2018 3:57 PM Report E-Signed By: Lamont Fournier MD at 07/21/2018 3:58 PM ORIGINAL REPORT Examination: MR brain without and with contrast History: Breast cancer Comparison: December 11, 2017 Technique: Multiplane MR imaging was performed through the brain without and with contrast. 14 cc IV multihance was administered. Findings: Diffusion: None Ventricles: Normal Midline shift: None Extraxial fluid: None Midline craniocervical structures: New hypointense T1 signal within the C2 and C3 vertebral bodies.w Parenchyma: A few scattered punctate white matter high signal foci one of which is new or more visibl e on the right frontal juxtacortical white matter, axial FLAIR image 20. No enhancement in the regio n of this new white matter high signal foci which is favored to be benign. Enhancement: No pathologic enhancement Vascular flow voids: Normal Orbits and paranasal sinuses: Normal Other: No significant additional finding. Impression: 1. No metastatic disease identified. 2. New or more visible right frontal juxtacortical nonenhancing white matter high signal focus is fav ored to represent the residua of chronic small vessel ischemic change and less likely a nonenhancing metastasis. 3. Otherwise unremarkable brain MR without and with contrast. Report Dictated By: Lamont Fournier MD at 07/21/2018 3:30 PM Report E-Signed By: Lamont Fournier MD at 07/21/2018 3:40 PM WSN:[id number]
== END ==
LOC: MRI 00:38
PROVIDERS: ATTEND Specialist
DX: C79.51 Secondary malignant neoplasm of bone (principal); R51 Headache
CPT/HCPCS: 70553

== ENCOUNTER 2018-08-31 08:54 | Outpatient (RCR) | payer OTHER ==
[2018-06-08] MEDS: HEPARIN FLSH (PORT) 500 UN/5ML IVP PRN (08:45)
[2018-06-08 09:15] VITALS: BP 122/68
[2018-06-08 10:24] VITALS: BP 118/71
[2018-07-15 15:04] VITALS: BP 140/72
--- NOTE | 2018-07-15 16:22 | ONCOLOGY CHEMO TEACHING ---
EVENT DATE: July 15, 2018 DIAGNOSIS Stage IV, ER/TX positive, HER2/tito negative left metastatic breast cancer. CHIEF COMPLAINT Patient is here today for chemotherapy teaching session for Xeloda for her metastatic breast cancer. The patient is seen today for chemotherapy teaching. A total of 60 minutes was spent with Ms. Beltran, 100% of which was [id number] counseling. HISTORY OF PRESENT ILLNESS Patient is a 57-year-old woman seen today for oral chemotherapy teaching session for capecitabine. She recently completed six cycles of carboplatin. She is being managed by Dr. Sandoval, her breast surgeon in [place]. She denies any significant pain today. She does not have any nausea or vomiting. She believes her appetite and weight are stable. ONCOLOGY HISTORY Diagnosed with a left breast mass in 2009. Underwent left lumpectomy showing grade 1 infiltrating breast cancer, ER/TX positive. Completed adjuvant chemotherapy with dose-dense Adriamycin and Cytoxan, followed by dose-dense PACLITAXEL. Due to rash with PACLITAXEL, she was switched to Abraxane. She completed adjuvant radiation in December 2010. She began tamoxifen in January 2011 and continued this through July 2016. Underwent bilateral mastectomy in 2012 as well as VASYL-BSO due to uterine fibroids in 2015. Unfortunately, developed bone pain in October 2017. Bone biopsy showed metastatic breast cancer, triple negative. Began carboplatin in December 2017. She completed six cycles. She is now going to initiate treatment with Xeloda. Final dose, as per Dr. Sandoval's orders, will be 1600 mg b.i.d. days 1 through 14 out of a 21-day cycle. PAST MEDICAL HISTORY 1. Left breast cancer. 2. Vitamin D deficiency. 3. Hypertension. 4. Pericardial effusion/pericarditis, 2011. SURGICAL HISTORY 1. Left lumpectomy, May 2010. 2. Bilateral mastectomy without reconstruction, June 2012. 3. VASYL-BSO in 2015 secondary to uterine fibroids. FAMILY HISTORY Negative for malignancy. SOCIAL HISTORY Patient is . They have one grown daughter. 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 She has never smoked. She has no significant alcohol use. ALLERGIES SULFA, MEPERIDINE, PACLITAXEL, SULFAMETHOXAZOLE, TRIMETHOPRIM. DISCUSSION 1. A total of 60 minutes was spent in counseling today, 100% of which was face to face. At today's chemotherapy teaching session we discussed her diagnosis as well as the planned chemotherapy regimen and toxicities associated with capecitabine (Xeloda) twice daily on days 1 through 14 on a 21-day cycle. Handouts of each drug were provided and reviewed in detail. 2. Side effects and toxicities of chemotherapy agents included, but were not limited to: A. Bone marrow suppression, specifically neutropenia. She is instructed to contact our offices with any signs of infection. CBC will be monitored routinely. We discussed common sense approaches including routine hand washing and avoidance of crowds/sick people if neutropenic. B. GI side effects. Discussed the possibility of nausea, vomiting, diarrhea, and constipation. She will receive IV antiemetics and will be prescribed antiemetics for home use. If she were to have diarrhea, recommended Imodium. If she were to have constipation, recommended Senna-S or MiraLAX routinely. Further interventions will be made based on side effects. C. side effects. Discussed the importance of adequate hydration (minimum 8 cups of fluid per day) and emptying the bladder on a regular basis. IV hydration can be scheduled as needed. D. Mouth sores. Recommended salt water or baking soda gargles as needed. E. Skin toxicity. Discussed that chemotherapy was very drying to the skin and mucous membranes. Recommended routine moisturizing as well as sun protection. We specifically discussed hand-foot syndrome and signs and symptoms and when to call our office. F. Neurotoxicity. Discussed symptoms of peripheral neuropathy. She will be monitored of these symptoms and will notify us if progressive. G. Alopecia. Hair thinning can occur; complete alopecia is less common. H. Fatigue. Discussed that this is one of the most common complaints of patients undergoing chemotherapy. I have encouraged her to remain as active as possible, taking frequent rests as needed. I. Infusion reaction. Reviewed IV premedications. She will be monitored closely during infusions. J. Reproductive health: Discussed importance of preventing while on chemotherapy. Discussed control options and fertility preservation, also to abstain from sexual intercourse for two to three days after chemotherapy administration. 3. I have instructed the patient to call our office if she is prescribed any new medications. It is recommended that multiple supplements or herbal medications may not be taken as these may interfere with the action of the chemotherapy. 4. Discussed dietary issues associated with chemotherapy including anorexia and changes in taste. A handout of nutrition information is given. 5. Office contact information ([phone]) is given. I have encouraged the patient to call with any issues regarding treatment. 6. A tour of the infusion room is given. She is given a packet of information including all of the above. Treatment will begin as soon as this is delivered to patient per specialty pharmacy. 7. Xeloda is to be delivered to the patient in the next couple of days per her specialty pharmacy. 8. Pending imaging: Patient tells me she has an MRI of the brain that was recently ordered by Dr. Sandoval which is still currently pending. Our office is going to contact Dr. Sandoval's office in [place] and see if we can help the patient with ETA on this. 9. Patient will follow up in one to two weeks post initiating capecitabine for standard toxicity check. She will continue to follow up with Dr. Sandoval per her instructions. [facility]
[2018-08-16 15:43] VITALS: BP 125/69
[2018-08-16 15:47] LABS: PLATELET COUNT, AUTOMATED 181 K/uL (150-450)
[2018-08-24 08:29] VITALS: BP 119/73
[2018-08-24 08:51] LABS: PLATELET COUNT, AUTOMATED 157 K/uL (150-450)
[~2018-08-31] VITALS: Ht 176.5 cm; Wt 61.6 kg
[~2018-08-31 08:54] MED LIST changes: +ALTEPLASE RECOMB 2 MG VIAL IVP PRN; +DEXTROSE 5%(*) 100 ML BAG 100 ML IVPB PRN; +LIDOCAINE/SOD BICARB 8.4% SYR ID PRN; +NS(*) 0.9% 100 ML BAG 100 ML IVPB PRN; +NS(*) 0.9% 500 ML BAG 500 ML IV PRN; +WATER FOR INJ,STERILE 20 ML IVP PRN; +ZOLEDRONIC ACID 4 MG/5 ML VIAL 4 MG in NS(*) 0.9% 100 ML BAG 100 ML IVPB ONE
[2018-08-31 09:28] VITALS: BP 124/74
[2018-08-31 11:03] VITALS: BP 118/72
[2018-08-31] MEDS: HEPARIN FLSH (PORT) 500 UN/5ML IVP PRN (11:03)
[2018-08-31] MEDS ORDERED: ZOLEDRONIC ACID 4 MG/5 ML VIAL 4 MG in NS(*) 0.9% 100 ML BAG 100 ML IVPB ONE (11:30)
== END 2018-09-05 ==
LOC: SPU 08:54
PROVIDERS: ATTEND Internal Medicine
DX: Z51.11 Encounter for antineoplastic chemotherapy (principal); C50.919 Malignant neoplasm of unspecified site of unspecified female breast; C79.51 Secondary malignant neoplasm of bone; Z90.13 Acquired absence of bilateral breasts and nipples; I10 Essential (primary) hypertension
CPT/HCPCS: 36415; 85025; 96365; 96374; J1642; J3489; J7040; J7050; 82040; 82247; 82310; 82374; 82435; 82565; 82947; 84075; 84132; 84155; 84295; 84450; 84460; 84520

== ENCOUNTER → 2018-12-06 | Outpatient (CLI) | payer OTHER ==
[~2018-12-06] MED LIST changes: -ALTEPLASE RECOMB 2 MG VIAL IVP PRN; -DEXTROSE 5%(*) 100 ML BAG 100 ML IVPB PRN; +IOPAMIDOL 76% 100 ML INFUS BTL 100 ML ONE; -LIDOCAINE/SOD BICARB 8.4% SYR ID PRN; -NS(*) 0.9% 100 ML BAG 100 ML IVPB PRN; -NS(*) 0.9% 500 ML BAG 500 ML IV PRN; -WATER FOR INJ,STERILE 20 ML IVP PRN; -ZOLEDRONIC ACID 4 MG/5 ML VIAL 4 MG in NS(*) 0.9% 100 ML BAG 100 ML IVPB ONE
--- NOTE | 2018-12-06 10:02 | RADIOLOGY IMAGING REPORT ---
FACILITY: [facility] [place] PATIENT NAME: Melinda Beltran : 1960 MR: [id number] V: [id number] EXAM DATE: ORDERING PHYSICIAN: EMEKA ARELLANO TECHNOLOGIST: Location: [facility] [place] Patient: Melinda Beltran : 1960 Visit/Account:[id number] Date of Sevice: 12/06/2018 CT CHEST ABDOMEN PELVIS W/CON HISTORY: Metastatic breast cancer ADDITIONAL HISTORY: None. TECHNIQUE: Following administration of IV contrast axial images acquired through the chest abdomen a nd pelvis during the portal venous phase. Coronal and sagittal reformatting was also performed.Dose Lowering Technique One of the following dose optimization techniques was utilized in the performance of this exam: Autom ated exposure control; adjustment of the mA and/or kV according to the patient's size; or use of an i terative reconstruction technique. Specific details can be referenced in the facility's radiology C T exam operational policy. CONTRAST: 75 mL Isovue-370 COMPARISON: July 02, 2018 FINDINGS: CHEST: Lungs/Pleura: Biapical pleural parenchymal scarring, left greater than right appears relatively unch anged. Mild linear scarring in the lung bases also stable Mediastinum/lymph nodes: Negative. Heart/vessels: Implanted right-sided port is again seen Bones/soft tissues: Postsurgical changes from bilateral mastectomies. There are surgical clips in t he left axillary region. There are diffuse mixed lytic and blastic metastases throughout the visuali zed bones ABDOMEN AND PELVIS: Hepatobiliary: Previously documented benign hemangiomas in the liver appear unchanged Spleen: Negative. Pancreas: Negative. Adrenals: Negative. Kidneys ureters and bladder : Negative. Genitalia: Hysterectomy GI: Negative. Vessels/spaces/nodes: Negative. Bones/soft tissues: There are diffuse mixed lytic and blastic metastases throughout the visualized b ones appearing similar to the prior study Additional findings: None pertinent. IMPRESSION: Diffuse mixed lytic and blastic metastases throughout the visualized bones appearing similar to the p rior study Biapical pleural parenchymal scarring, left greater than right appears similar to the prior study Additional chronic findings as described Report Dictated By: Elise Mckenzie MD at 12/06/2018 9:34 AM Report E-Signed By: Elise Mckenzie MD at 12/06/2018 9:53 AM WSN:[email or web address]
--- NOTE | 2018-12-06 12:28 | RADIOLOGY IMAGING REPORT ---
FACILITY: [facility] PATIENT NAME: Melinda Beltran : 1960 MR: [id number] V: [id number] EXAM DATE: ORDERING PHYSICIAN: EMEKA ARELLANO TECHNOLOGIST: Location: [facility] Patient: Melinda Beltran : 1960 Visit/Account:[id number] Date of Sevice: 12/06/2018 Examination: Nuclear medicine whole body bone scan Comparison: CT 12/06/2018 and earlier. Bone scan 07/02/2018 and earlier. History: Left breast cancer. Procedure: Standard whole body bone scan with anterior and posterior planar imaging following the une ventful administration of 23.7 mCi technetium 99m MDP. Findings: Normal physiologic tracer activity throughout the axial and appendicular skeleton and the s oft tissues. Multiple bilateral rib lesions are minimally changed. Heterogeneous metastatic uptake throughout the cervical, thoracic, and lumbar spine and sternum is also similar to the prior study. Single new focus of uptake in the left parietal bone. Mild heterogeneous uptake in the left iliac bone is minimally changed; the CT appearance is more sugg estive of Paget's disease than metastatic disease although foci of metastasis in this region is a pos sibility. IMPRESSION: Multifocal osseous metastatic disease. Overall, the distribution of disease is minimally changed sinc e 07/02/2018 but there is a single new lesion in the left parietal bone. Report Dictated By: Pardeep Lopez MD at 12/06/2018 12:15 PM Report E-Signed By: Pardeep Lopez MD at 12/06/2018 12:19 PM WSN:[id number]
== END ==
LOC: CT 02:24
PROVIDERS: ATTEND Nurse Practitioner Family
DX: C50.919 Malignant neoplasm of unspecified site of unspecified female breast (principal); C79.51 Secondary malignant neoplasm of bone
CPT/HCPCS: 71260; 74177; 78306; A9503; Q9967